=== PATIENT | female | born 1985 | race African-American/Black ===

== ENCOUNTER 2016-05-25 17:45 | Emergency (ER) | payer MEDICAID ==
[2016-05-25 18:00] VITALS: BP 120/82
--- NOTE | 2016-05-25 19:22 | ER Document Report ---
HPI - HPI Patient complains to provider of: SORE THROAT, BODY ACHES, COUGH AND HEADACHE Onset: Other - TUESDAY Onset/Duration: Gradual Quality of pain: Achy Severity: Moderate Pain Level: 4 Context: PT POSSIBLY EXPOSED TO STREP Associated Symptoms: Nonproductive cough, Fever, Headache, Sore throat Exacerbated by: Coughing Relieved by: Denies Similar symptoms previously: No Recently seen / treated by doctor: No - ROS ROS below otherwise negative: Yes Systems Reviewed and Negative: Yes All other systems reviewed and negative - CONSTITUTIONAL Constitutional: REPORTS: Fever - EENT EENT: REPORTS: Sore Throat, Nasal Drainage-Clear - NEURO Neurology: REPORTS: Headache - CARDIOVASCULAR Cardiovascular: DENIES: Chest pain - RESPIRATORY Respiratory: REPORTS: Coughing. DENIES: Trouble Breathing - GASTROINTESTINAL Gastrointestinal: DENIES: Abdominal Pain - URINARY Urinary: DENIES: Dysuria - MUSCULOSKELETAL Musculoskeletal: DENIES: Extremity pain - DERM Skin Color: Normal Skin Problems: None Past Medical History - General Information source: Patient - Social History Smoking Status: Never Smoker Chew tobacco use (# tins/day): No Frequency of alcohol use: None Drug Abuse: None Lives with: Family Family History: Reviewed & Not Pertinent Patient has suicidal ideation: No Patient has homicidal ideation: No - Medical History Medical History: Negative Renal/ Medical History: Denies: Hx Peritoneal Dialysis Surgical Hx: Negative Vertical Provider Document - CONSTITUTIONAL Agree With Documented VS: Yes Exam Limitations: No Limitations General Appearance: WD/WN, No Apparent Distress - INFECTION CONTROL TRAVEL OUTSIDE OF THE [place] IN LAST 30 DAYS: No - HEENT HEENT: Atraumatic, Normocephalic, Pharyngeal Erythema. negative: Pharyngeal Exudate - NECK Neck: Normal Inspection - RESPIRATORY Respiratory: Breath Sounds Normal, No Respiratory Distress, Other - BARKY COUGH O2 Sat by Pulse Oximetry: 98 - CARDIOVASCULAR Cardiovascular: Regular Rate, Regular Rhythm - GI/ABDOMEN Gastrointestinal: Abdomen Soft - MUSCULOSKELETAL/EXTREMETIES Musculoskeletal/Extremeties: ANGEL DUNCAN - NEURO Level of Consciousness: Awake, Alert, Appropriate - DERM Integumentary: Warm, Dry, No Rash Course - Vital Signs Vital signs: Temp Pulse Resp BP Pulse Ox 99.0 F 83 16 120/82 98 05/25/16 18:00 05/25/16 18:00 05/25/16 18:20 05/25/16 18:00 05/25/16 18:00 Discharge - Discharge Clinical Impression: Cough Pharyngitis Qualifiers: Pharyngitis/tonsillitis etiology: unspecified etiology Qualified Code(s): J02.9 - Acute pharyngitis, unspecified Condition: Good Disposition: HOME, SELF-CARE Instructions: Sore Throat ([facility]) Additional Instructions: push fluids OTC cough/cold meds as needed tylenol or motrin prn follow up with PCP for recheck Tuesday if not better throat culture takes 3 days, you will be notified of results return as needed Prescriptions: Azithromycin [Zithromax 250 mg Tablet] 250 mg PO ASDIR PRN #6 tablet PRN Reason:
== END 2016-05-25 19:40 | disposition home or self-care (01) ==
LOC: ER 17:45
DX: J02.9 Acute pharyngitis, unspecified (principal); R05 Cough; R52 Pain, unspecified; R51 Headache; R50.9 Fever, unspecified
CPT/HCPCS: 87070; 87880; 99283

== ENCOUNTER 2016-08-04 08:19 | Emergency (ER) | payer OTHER ==
--- NOTE | 2016-08-04 10:15 | ER Document Report ---
HPI - HPI Patient complains to provider of: laceration Pain Level: 5 Context: 30-year-old female presents emergency department complaining of laceration on her pubic area. Patient states that she was at work throwing out the trash when she accidentally ran her pubic area into the guardrail in front of the dumpster on the point. Patient admits to pain, bleeding at the site. Has been able to ambulate and bear weight without problem. Patient's tetanus is up-to- date. Otherwise denies any other medical problems. - CARDIOVASCULAR Cardiovascular: DENIES: Chest pain - REPRODUCTIVE LMP: 07/06/16 - DERM Skin Color: Normal Past Medical History - Social History Smoking Status: Never Smoker Chew tobacco use (# tins/day): No Frequency of alcohol use: None Drug Abuse: None Family History: Reviewed & Not Pertinent Patient has suicidal ideation: No Patient has homicidal ideation: No Renal/ Medical History: Denies: Hx Peritoneal Dialysis Surgical Hx: Negative Vertical Provider Document - CONSTITUTIONAL Agree With Documented VS: Yes Exam Limitations: No Limitations General Appearance: WD/WN, No Apparent Distress - INFECTION CONTROL TRAVEL OUTSIDE OF THE [place] IN LAST 30 DAYS: No - RESPIRATORY O2 Sat by Pulse Oximetry: 98 - CARDIOVASCULAR Pulses: Normal: Femoral, Dorsalis pedis - GI/ABDOMEN Gastrointestinal: Abdomen Soft, Abdominal Guarding, No Organomegaly, Normal Bowel Sounds - MUSCULOSKELETAL/EXTREMETIES Musculoskeletal/Extremeties: MAEW, FROM, Non-Tender, No Edema - NEURO Level of Consciousness: Awake, Alert, Appropriate Motor/Sensory: No Motor Deficit, No Sensory Deficit - DERM Integumentary: Warm, Dry, No Rash, Laceration - 1cm laceration with minimnal bleeding, palpable hemtoma, minimal tenderness Course - Re-evaluation Re-evalutation: 08/04/16 19:21 Patient is a 30-year-old female hemodynamic stable, no acute distress afebrile. Site was cleared of hair with clippers, cleaned with Betadine and alcohol and closed with Dermabond. Discussed signs and symptoms to return to the emergency department. - Vital Signs Vital signs: Temp Pulse Resp BP Pulse Ox 98.5 F 74 14 149/84 H 98 08/04/16 08:26 08/04/16 08:26 08/04/16 08:26 08/04/16 08:08/04/16 08:26 Procedures - Laceration/Wound Repair Abdomen Wound length (cm): 1 Wound's Depth, Shape: Superficial Wound explored: Clean, No foreign body removed Wound Repaired With: Dermabond Discharge - Discharge Clinical Impression: Laceration Condition: Good Disposition: HOME, SELF-CARE Instructions: Non-Sutured Laceration ([facility]) Forms: Elevated Blood Pressure, Return to Work
[2016-08-04 11:03] VITALS: BP 116/74
== END 2016-08-04 11:04 | disposition home or self-care (01) ==
LOC: ER 08:19
PROC: 0HQ7XZZ Repair Abdomen Skin, External Approach (ICD-10-PCS; principal; 2016-08-04)
DX: S31.119A Laceration without foreign body of abdominal wall, unspecified quadrant without penetration into peritoneal cavity, initial encounter (principal); W22.8XXA Striking against or struck by other objects, initial encounter
CPT/HCPCS: 99282

== ENCOUNTER 2016-08-05 20:48 | Emergency (ER) | payer OTHER ==
--- NOTE | 2016-08-05 23:42 | ER Document Report ---
ED General - General Chief Complaint: Pelvic Pain Stated Complaint: PELVIC PAIN Time Seen by Provider: 08/05/16 23:16 Notes: Patient is a 30-year-old female was seen in the emergency department yesterday for a small area of a laceration on her left pelvic region just above the level of the vagina presents today with small amount of bleeding from the area. States this started just prior to arrival and did resolve with direct pressure. No additional trauma to the area. Denies any erythema spreading from the area , no purulent drainage, no increased pain. She has not seen a primary care doctor regarding today's concerns. Denies any active bleeding at this time. TRAVEL OUTSIDE OF THE [place] IN LAST 30 DAYS: No - Related Data Allergies/Adverse Reactions: No Known Allergies Allergy (Verified 08/04/16 08:22) Past Medical History - General Information source: Patient - Social History Smoking Status: Never Smoker Chew tobacco use (# tins/day): No Frequency of alcohol use: None Drug Abuse: None Lives with: Family Family History: Reviewed & Not Pertinent Patient has suicidal ideation: No Patient has homicidal ideation: No Renal/ Medical History: Denies: Hx Peritoneal Dialysis Surgical Hx: Negative - Immunizations Hx Diphtheria, Pertussis, Tetanus Vaccination: Yes Review of Systems - Review of Systems Notes: Constitutional: Negative for fever. Cardiovascular: Negative for chest pain. Respiratory: Negative for shortness of breath. Gastrointestinal: Negative for vomiting Musculoskeletal: Negative for back pain. Skin: Negative for rash. Neurological: Negative for weakness or numbness. 10 point ROS negative except as marked above and in HPI. Physical Exam - Vital signs Vitals: Temp Pulse Resp BP Pulse Ox 98.1 F 67 18 131/70 H 100 08/05/16 21:23 08/05/16 21:23 08/05/16 21:23 08/05/16 21:23 08/05/16 21:23 Interpretation: Normal Notes: PHYSICAL EXAMINATION: GENERAL: Well-appearing, well-nourished and in no acute distress. HEAD: Atraumatic, normocephalic. EYES: sclera anicteric, conjunctiva are normal. ENT: Moist mucous membranes. NECK: Normal range of motion LUNGS: Normal work of breathing HEART: 2+ radial pulses bilaterally EXTREMITIES: no pitting or edema. No cyanosis. NEUROLOGICAL: No focal neurological deficits. Moves all extremities spontaneously and on command. PSYCH: Normal mood, normal affect. SKIN: Warm, Dry, normal turgor, there is a very small laceration in the left groin region approximately 3-4 cm above the level of vagina. No active bleeding. Course - Re-evaluation Re-evalutation: 08/05/16 23:40 Patient presents with small amount of bleeding from a small laceration that was yesterday using Dermabond in the left pelvic region just above the level of the vagina yesterday. Bleeding at time of assessment. Patient had only scant bleeding on the pad that she had placed inside her underwear. No indication for labs or imaging. Care measures discussed with the patient. At this time will discharge with return precautions and follow-up recommendations. Verbal discharge instructions given a the bedside and opportunity for questions given. Medication warnings reviewed. Patient is in agreement with this plan and has verbalized understanding of return precautions and the need for primary care follow-up in the next 24-72 hours. - Vital Signs Vital signs: Temp Pulse Resp BP Pulse Ox 98.1 F 82 18 129/69 H 98 08/05/16 21:23 08/06/16 00:27 08/06/16 00:27 08/06/16 00:27 08/06/16 00:27 Discharge - Discharge Clinical Impression: Laceration Condition: Good Disposition: HOME, SELF-CARE Additional Instructions: If you develop bleeding from the area please apply direct pressure with a single finger for 15 minutes. Return to the emergency department if the bleeding persists coming of spreading redness from the area, pus from the area or any other symptoms that are worrisome to you.
[2016-08-06 00:28] VITALS: BP 129/69
== END 2016-08-06 00:20 | disposition home or self-care (01) ==
LOC: ER 20:48
DX: S31.010A Laceration without foreign body of lower back and pelvis without penetration into retroperitoneum, initial encounter (principal); W22.8XXA Striking against or struck by other objects, initial encounter
CPT/HCPCS: 99281

== ENCOUNTER 2016-08-14 13:37 | Emergency (ER) | payer OTHER ==
--- NOTE | 2016-08-14 15:00 | ER Document Report ---
HPI - HPI Patient complains to provider of: Swollen tender area to mons pubis Onset: Other - Gradually since Tuesday Onset/Duration: Worse Quality of pain: Sharp, Throbbing Pain Level: 5 Associated Symptoms: Other - Tender swollen area to mons pubis left side Exacerbated by: Movement, Walking Relieved by: Denies Similar symptoms previously: Yes Recently seen / treated by doctor: Yes - ROS ROS below otherwise negative: Yes - CONSTITUTIONAL Constitutional: DENIES: Fever, Chills - EENT EENT: DENIES: Sore Throat, Ear Pain, Nasal Drainage-Clear, Nasal Drainage- Purulent, Congestion, Eye problems - NEURO Neurology: DENIES: Headache, Weakness, Vision blurred, Dizzinesss / Vertigo - CARDIOVASCULAR Cardiovascular: DENIES: Chest pain - RESPIRATORY Respiratory: DENIES: Trouble Breathing, Coughing - GASTROINTESTINAL Gastrointestinal: DENIES: Abdominal Pain, Nausea, Patient vomiting, Diarrhea, Constipation, Black / Bloody Stools - URINARY Urinary: DENIES: Dysuria, Urgency, Frequency - REPRODUCTIVE Reproductive: DENIES: :, Postmenopausal, Abnormal bleeding / discharge - MUSCULOSKELETAL Musculoskeletal: DENIES: Extremity pain, Back Pain, Neck Pain, Swelling - DERM Skin Color: Normal Skin Problems: None Past Medical History - General Information source: Patient - Social History Smoking Status: Never Smoker Cigarette use (# per day): No Chew tobacco use (# tins/day): No Smoking Education Provided: No Frequency of alcohol use: None Drug Abuse: None Occupation: Caregiver Lives with: Family Family History: denies: Arthritis, CAD, COPD, CVA, DM, Hyperlipidemia, Hypertension, Malignancy, Thyroid Disfunction Patient has suicidal ideation: No Patient has homicidal ideation: No - Past Medical History Cardiac Medical History: Reports: None Pulmonary Medical History: Reports: None EENT Medical History: Reports: None Neurological Medical History: Reports: None Endocrine Medical History: Reports: None Renal/ Medical History: Reports: None GI Medical History: Reports: None Musculoskeltal Medical History: Reports None Skin Medical History: Reports None Psychiatric Medical History: Reports: None Traumatic Medical History: Reports: None Infectious Medical History: Reports: None Surgical Hx: Negative Past Surgical History: Reports: None - Immunizations Hx Diphtheria, Pertussis, Tetanus Vaccination: Yes Vertical Provider Document - CONSTITUTIONAL Agree With Documented VS: Yes Exam Limitations: No Limitations General Appearance: WD/WN, No Apparent Distress - INFECTION CONTROL TRAVEL OUTSIDE OF THE [place] IN LAST 30 DAYS: No - HEENT HEENT: Atraumatic, Normal ENT Exam, Normocephalic, PERRLA - NECK Neck: Normal Inspection, Supple, Thyroid Normal - RESPIRATORY Respiratory: Breath Sounds Normal, No Respiratory Distress, Chest Non-Tender O2 Sat by Pulse Oximetry: 98 - GI/ABDOMEN Gastrointestinal: Abdomen Soft, Abdomen Non-Tender, No Organomegaly, Normal Bowel Sounds - REPRODUCTIVE Notes: Bowel painful tender not to the left mons pubis. Patient states it is been there since last Tuesday gradually getting and larger. - MUSCULOSKELETAL/EXTREMETIES Musculoskeletal/Extremeties: MAEW, FROM, Non-Tender - NEURO Level of Consciousness: Awake, Alert, Appropriate Motor/Sensory: No Motor Deficit, No Sensory Deficit, No Pronator Drift Course - Vital Signs Vital signs: Temp Pulse Resp BP Pulse Ox 99.5 F 69 12 130/74 H 98 08/14/16 13:47 08/14/16 13:47 08/14/16 13:47 08/14/16 13:47 08/14/16 13:47 Procedures - Incision and Drainage Left Mons pubis Type: Simple Anesthetic type: 1% Lidocaine mL's of anesthetic: 5 Blade size: 11 I&D procedure: Iodoform packing placed, Other Incision Method: Incision made by scalpel Amount/type of drainage: large amount of dark black drainage Discharge - Discharge Clinical Impression: hematoma to mons pubis Condition: Stable Disposition: HOME, SELF-CARE Instructions: Family Physicians / Practices Additional Instructions: Were seen today for a large tender knot in the pubic area. This area was opened and drained and flushed out with saline. The opening was packed with iodoform gauze that will need to be removed in the ER on Tuesday. Please come in the morning and have someone we remove the packing and reassess the injury. POST INCISION AND DRAINAGE: You have had an incision made to allow drainage of an hematoma. The incision must remain open so that pus and debris can drain from the wound. If the abscess cavity is large, packing is placed. This keeps the tissues from collapsing and trapping fluids inside, while the body shrinks the cavity. The packing may need to be replaced every day or two. The physician has instructed you to return to the emergency room on Tuesday to have the area reassessed. Keep a bulky dressing over the area. Replace it if it becomes saturated with blood or pus. Do not disturb the packing (if present). You may shower and cleanse the area with gentle soap and warm water two or three times a day. Local warmth may be soothing, and may promote faster healing. Return if you develop high fever or chills, or if you note spreading redness, increasing swelling, or increasing tenderness. Cephalexin The antibiotic you've been prescribed is a member of the cephalosporin class. This type of antibiotic covers a wide variety of infections, including those of the skin, lungs, and urinary tract. It's useful for staph infections. This antibiotic is slightly similar to the penicillin family. In rare cases , a person who is allergic to penicillin will also be allergic to this medication. If you have had a severe allergic reaction to penicillin, and have not taken this antibiotic since that time, notify your doctor. Antibiotics which cover many germs ("broad spectrum" antibiotics) are more likely to cause diarrhea or "yeast" infections. Women prone to vaginal yeast problems may suffer an attack after taking this antibiotic. In infants, oral thrush (white spots "stuck" on the cheek) or yeast diaper rash may result. See your doctor if these problems occur. Call at once if you develop itching, hives , shortness of breath, or lightheadedness. ORAL NARCOTIC MEDICATION: You have been given a prescription for pain control. This medication is a narcotic. It's best taken with food, as nausea can result if taken on an empty stomach. Don't operate machinery or drive within six hours of taking this medication. Do not combine this medicine with alcohol, or with any medication which can cause sedation (such as cold tablets or sleeping pills) unless you get permission from the physician. Narcotics tend to cause constipation. If possible, drink plenty of fluids and eat a diet high in fiber and fruits. FOLLOW-UP CARE: Most simple abscesses will not require a follow up visit. If you had packing placed in the abscess, remove it as instructed by the physician. If you have been referred to a physician for follow-up care, call the physicians office for an appointment as you were instructed or within the next two days. If you experience worsening or a significant change in your symptoms, return to the Emergency Department at any time for re-evaluation. Prescriptions: Hydrocodone/Acetaminophen [Grundy 5-325 mg Tablet] 1 tab PO Q6HP PRN #10 tablet PRN Reason: Cephalexin Monohydrate [Keflex 500 mg Capsule] 500 mg PO QID #20 capsule Forms: Return to Work
[2016-08-14 17:18] VITALS: BP 129/77
== END 2016-08-14 17:25 | disposition home or self-care (01) ==
LOC: ER 13:37
PROC: 0H97XZZ Drainage of Abdomen Skin, External Approach (ICD-10-PCS; principal; 2016-08-14)
DX: N94.89 Other specified conditions associated with female genital organs and menstrual cycle (principal); R19.09 Other intra-abdominal and pelvic swelling, mass and lump
CPT/HCPCS: 99283; A6266

== ENCOUNTER 2016-08-16 07:29 | Emergency (ER) | payer OTHER ==
[2016-08-16 07:34] VITALS: BP 122/83
--- NOTE | 2016-08-16 09:09 | ER Document Report ---
ED Wound - General Chief Complaint: Wound Recheck Stated Complaint: RECHECK ON WOUND Time Seen by Provider: 08/16/16 08:49 Mode of Arrival: Ambulatory Information source: Patient Notes: Patient is a 30-year-old female who presents to the ER today for a checking of the packing and her genital abscess that was incised, drained and packed on the 24 here in the emergency department. He is still on her antibiotics, denies fevers or chills, states that she feels much better. TRAVEL OUTSIDE OF THE [place] IN LAST 30 DAYS: No - Related Data Allergies/Adverse Reactions: No Known Allergies Allergy (Verified 08/16/16 07:32) Past Medical History - General Information source: Patient - Social History Smoking Status: Unknown if Ever Smoked Frequency of alcohol use: None Drug Abuse: None Family History: denies: Arthritis, CAD, COPD, CVA, DM, Hyperlipidemia, Hypertension, Malignancy, Thyroid Disfunction Patient has suicidal ideation: No Patient has homicidal ideation: No Renal/ Medical History: Denies: Hx Peritoneal Dialysis - Immunizations Hx Diphtheria, Pertussis, Tetanus Vaccination: Yes Review of Systems - Review of Systems Constitutional: No symptoms reported EENT: No symptoms reported Cardiovascular: No symptoms reported Respiratory: No symptoms reported Gastrointestinal: No symptoms reported Genitourinary: No symptoms reported Female Genitourinary: See HPI Musculoskeletal: No symptoms reported Skin: See HPI Hematologic/Lymphatic: No symptoms reported Neurological/Psychological: No symptoms reported Physical Exam - Vital signs Vitals: Temp Pulse Resp BP Pulse Ox 98.3 F 64 20 122/83 98 08/16/16 07:32 08/16/16 07:32 08/16/16 07:32 08/16/16 07:32 08/16/16 07:32 - Notes Notes: PHYSICAL EXAMINATION: GENERAL: Well-appearing and in no acute distress. HEAD: Atraumatic, normocephalic. EYES: Pupils equal round and reactive to light, extraocular movements intact, sclera anicteric, conjunctiva are normal. NECK: Normal range of motion, supple without lymphadenopathy LUNGS: CTAB and equal. No wheezes rales or rhonchi. HEART: Regular rate and rhythm without murmurs EXTREMITIES: Normal range of motion, no pitting edema. No cyanosis. NEUROLOGICAL: Cranial nerves grossly intact. Normal sensory/motor exams. PSYCH: Normal mood, normal affect. SKIN: Warm, Dry, normal turgor, packing in wound to center of pelvic area above labia majora, no erythema surrounding, no bleeding or drainage, nontender Course - Re-evaluation Re-evalutation: 08/16/16 09:14 Packing was removed successfully without having to give any pain medication. Wound looks very well without erythema or tenderness, drainage. - Vital Signs Vital signs: Temp Pulse Resp BP Pulse Ox 98.3 F 64 20 122/83 98 08/16/16 07:32 08/16/16 07:32 08/16/16 07:32 08/16/16 07:32 08/16/16 07:32 Discharge - Discharge Clinical Impression: Abscess packing removal Condition: Stable Disposition: HOME, SELF-CARE Additional Instructions: Finish your antibiotics. Return immediately for any new or worsening symptoms. Follow up with primary care provider, call tomorrow to make followup appointment.
== END 2016-08-16 09:22 | disposition home or self-care (01) ==
LOC: ER 07:29
DX: Z48.01 Encounter for change or removal of surgical wound dressing (principal)
CPT/HCPCS: 99282

== ENCOUNTER 2016-08-18 11:47 | Emergency (ER) | payer OTHER ==
--- NOTE | 2016-08-18 12:33 | ER Document Report ---
ED Suture/Wound Recheck - General Chief Complaint: Vaginal Pain Stated Complaint: PELVIC PAIN Time Seen by Provider: 08/18/16 12:14 Mode of Arrival: Ambulatory Information source: Patient Notes: 30-year-old female presents to ED for recheck of abscess to the mons pubis did not I&D done on 14 August returned on the and had the packing removed. The site looks well has a small knot no redness no tenderness unless she pushes on the site. No drainage. TRAVEL OUTSIDE OF THE [place] IN LAST 30 DAYS: No - HPI Previous ED treatment: I&D of abscess Antibiotics given previously: Prescription Quality of pain: No pain Severity: None Pain Level: Denies Exacerbated by: Other - palpation Relieved by: Denies - Related Data Allergies/Adverse Reactions: No Known Allergies Allergy (Verified 08/16/16 07:32) Past Medical History - General Information source: Patient - Social History Smoking Status: Never Smoker Cigarette use (# per day): No Chew tobacco use (# tins/day): No Smoking Education Provided: No Frequency of alcohol use: None Drug Abuse: None Occupation: home care nurse Lives with: Family Family History: denies: Arthritis, CAD, COPD, CVA, DM, Hyperlipidemia, Hypertension, Malignancy, Thyroid Disfunction Patient has suicidal ideation: No Patient has homicidal ideation: No - Past Medical History Cardiac Medical History: Reports: None Pulmonary Medical History: Reports: None EENT Medical History: Reports: None Neurological Medical History: Reports: None Endocrine Medical History: Reports: None Renal/ Medical History: Reports: None Malignancy Medical History: Reports: None GI Medical History: Reports: None Musculoskeltal Medical History: Reports None Skin Medical History: Reports Hx Cellulitis Psychiatric Medical History: Reports: None Traumatic Medical History: Reports: None Infectious Medical History: Reports: None Surgical Hx: Negative Past Surgical History: Reports: None - Immunizations Hx Diphtheria, Pertussis, Tetanus Vaccination: Yes Review of Systems - Review of Systems Constitutional: No symptoms reported EENT: No symptoms reported Cardiovascular: No symptoms reported Respiratory: No symptoms reported Gastrointestinal: No symptoms reported Genitourinary: No symptoms reported Female Genitourinary: No symptoms reported Musculoskeletal: No symptoms reported Skin: Other - Recheck of abscess. Hematologic/Lymphatic: No symptoms reported Neurological/Psychological: No symptoms reported Physical Exam - Vital signs Vitals: Temp Pulse Resp BP Pulse Ox 98.0 F 66 16 126/74 H 100 08/18/16 11:55 08/18/16 11:55 08/18/16 11:55 08/18/16 11:55 08/18/16 11:55 Interpretation: Hypertensive - General General appearance: Appears well, Alert - HEENT Head: Normocephalic, Atraumatic Eyes: Normal Pupils: PERRL - Respiratory Respiratory status: No respiratory distress Chest status: Nontender Breath sounds: Normal Chest palpation: Normal - Cardiovascular Rhythm: Regular Heart sounds: Normal auscultation Murmur: No - Abdominal Inspection: Normal Distension: No distension Bowel sounds: Normal Tenderness: Nontender Organomegaly: No organomegaly - Back Back: Normal, Nontender - Extremities General upper extremity: Normal inspection, Nontender, Normal color, Normal ROM , Normal temperature General lower extremity: Normal inspection, Nontender, Normal color, Normal ROM , Normal temperature, Normal weight bearing. No: Pasha's sign - Neurological Neuro grossly intact: Yes Cognition: Normal Orientation: AAOx4 Renetta Coma Scale Eye Opening: Spontaneous Renetta Coma Scale Verbal: Oriented Renetta Coma Scale Motor: Obeys Commands Renetta Coma Scale Total: 15 Speech: Normal Motor strength normal: LUE, RUE, LLE, RLE Sensory: Normal - Psychological Associated symptoms: Normal affect, Normal mood - Skin Skin Temperature: Warm Skin Moisture: Dry Skin Color: Normal Skin irregularity: Abscess - Check abscess to mons pubis site looks well, no swelling, no redness, small knot where the abscess was I&D'd Irregularity with: Tenderness - when palpated Course - Vital Signs Vital signs: Temp Pulse Resp BP Pulse Ox 98.0 F 66 16 126/74 H 100 08/18/16 11:55 08/18/16 11:55 08/18/16 11:55 08/18/16 11:55 08/18/16 11:55 Discharge - Discharge Clinical Impression: Abscess re-check Condition: Stable Disposition: HOME, SELF-CARE Instructions: Family Physicians / Practices Additional Instructions: ABSCESS: You have an abscess (boil). This a pus-forming infection, usually due to staph. Some boils may be left to drain on their own, but most require lancing. From the time the tender lump first appears, it may be three or four days before the abscess is ready to flaco. Local heat and rest help at this stage of treatment. An antibiotic may prevent spread of the infection. Once the abscess is opened, packing may be placed into it. This is done so pus is not sealed inside by premature closure of the cavity. The packing will be removed at your follow-up visit or you may be advised to remove it yourself at home. Sometimes this packing must be replaced a few times during healing. The wound will heal with surprisingly little scar. Depending on the size and location of an abscess, healing can take one to four weeks. You may shower and wash the area around the incision site two or three times a day. Antibiotics may be prescribed, but are usually not necessary after an abscess has been drained. Your abscess is healing sometimes there is a little knot there for a while after the abscess has healed due to scar tissue. You can soak in a tub with Epsom salt to relieve any tenderness to the area. If the area becomes inflamed or red I have written a prescription for Septra that you can use. If abscess continues to heal as is now you do not need to take the Septra. TRIMETHOPRIM-SULFA: You have been given a prescription for trimethoprim-sulfa (TMS, Septra, Bactrim). This is a combination antibiotic of the sulfa class, often used for urinary tract infections, middle ear infections, bronchitis, shigella intestinal infection, and Pneumocystis pneumonia. TMS is usually well-tolerated. Occasional side effects include nausea and decreased appetite. Septra is not recommended for infants less than two months of age. Do not take this medication if you have experienced severe side effects or allergy to sulfa medicine. You should stop this medicine at once and contact your physician if you develop any rash, joint pain, shortness of breath, bruising, or jaundice ( yellow color in the skin), or if you develop any other new or unusual symptoms. Epsom Salt Soaks Soak the wound area in a container of warm epsom salt water. If you can't get the wound area into a bucket or rodriguez, use a folded towel soaked in the epsom salt solution and apply to the area. Use clean hot tap water (about the temperature of a very warm bath), mixing in about one (1) teaspoon for every pint of water. Two gallon --> 16 teaspoons Epsom Salts One gallon --> 8 teaspoons Epsom Salts Two quarts --> 4 teaspoons Epsom Salts One quart --> 2 teaspoons Epsom Salts Soak the wound for about 20 minutes while gently moving it around in the water. Repeat this four (4) times a day. FOLLOW-UP CARE: Most simple abscesses will not require a follow up visit. If you had packing placed in the abscess, remove it as instructed by the physician. If you have been referred to a physician for follow-up care, call the physicians office for an appointment as you were instructed or within the next two days. If you experience worsening or a significant change in your symptoms, return to the Emergency Department at any time for re-evaluation. Prescriptions: Sulfamethoxazole/Trimethoprim [Septra-Ds 800-160 mg Tablet] 1 tab PO BID #14 tablet Forms: Elevated Blood Pressure, Return to Work
[2016-08-18 12:43] VITALS: BP 113/83
== END 2016-08-18 12:45 | disposition home or self-care (01) ==
LOC: ER 11:47
DX: L02.215 Cutaneous abscess of perineum (principal); R10.2 Pelvic and perineal pain
CPT/HCPCS: 99283

== ENCOUNTER 2017-11-15 17:24 | Emergency (ER) | payer BC, OTHER ==
[2017-11-15 18:57] LABS: APPEARANCE,URINE SLIGHTLY-CLOUDY; BILIRUBIN,URINE NEGATIVE (NEGATIVE); COLOR,URINE YELLOW; GLUCOSE, URINE NEGATIVE (NEGATIVE); KETONES,URINE NEGATIVE (NEGATIVE); LEUKOCYTE ESTERASE,URINE MODERATE (NEGATIVE); NITRITE,URINE NEGATIVE (NEGATIVE); PROTEIN,URINE NEGATIVE (NEGATIVE); URINE SPECIFIC GRAVITY 1.009; UROBILINOGEN,URINE NEGATIVE mg/dL (<2.0)
--- NOTE | 2017-11-15 19:50 | ER Document Report ---
ED Medical Screen (RME) - General Chief Complaint: Vag Bleeding, +preg <12wks Stated Complaint: VAGINAL BLEEDING/CRAMPING Time Seen by Provider: 11/15/17 19:35 Notes: 31-year-old female with 11-week . Began having spotting. Some mild cramping. Has not had a formal ultrasound done at the hospital but did have one [facility] and was determined to have an intrauterine . Patient is a known Rh+ O+ patient. Denies any other major symptoms at this time I have greeted and performed a rapid initial assessment of this patient. A comprehensive ED assessment and evaluation of the patient, analysis of test results and completion of the medical decision making process will be conducted by additional ED providers. TRAVEL OUTSIDE OF THE [place] IN LAST 30 DAYS: No - Related Data Allergies/Adverse Reactions: No Known Allergies Allergy (Verified 11/15/17 17:25) Past Medical History - Social History Chew tobacco use (# tins/day): No Frequency of alcohol use: None Drug Abuse: None Renal/ Medical History: Denies: Hx Peritoneal Dialysis Skin Medical History: Reports Hx Cellulitis - Immunizations Hx Diphtheria, Pertussis, Tetanus Vaccination: Yes Physical Exam - Vital signs Vitals: Temp Pulse Resp BP Pulse Ox 97.9 F 62 16 126/82 H 99 11/15/17 17:50 11/15/17 17:50 11/15/17 17:50 11/15/17 17:50 11/15/17 17:50 Course - Vital Signs Vital signs: Temp Pulse Resp BP Pulse Ox 97.9 F 62 16 126/82 H 99 11/15/17 17:50 11/15/17 17:50 11/15/17 17:50 11/15/17 17:50 11/15/17 17:50 - Laboratory Laboratory results interpreted by me: 11/15/17 18:43 Urine Blood LARGE H Ur Leukocyte Esterase MODERATE H
--- NOTE | 2017-11-15 21:11 | ER Document Report ---
ED General - General TRAVEL OUTSIDE OF THE [place] IN LAST 30 DAYS: No <GEO SEGURA - Last Filed: 11/15/17 22:11> <TONIE DONAHUE - Last Filed: 11/16/17 00:05> - General Chief Complaint: Vag Bleeding, +preg <12wks Stated Complaint: VAGINAL BLEEDING/CRAMPING Time Seen by Provider: 11/15/17 19:35 Notes: Patient is a 31-year-old female presenting to the emergency department complaining of vaginal bleeding onset this morning around 0000. Patient states that she is approximately 11 weeks and had an ultrasound at [facility] at 8 weeks . Patient states that her vaginal bleeding began as dark brown in appearance then progressed to a light pink and darker red today with a small amount of clots. She also reports having a small amount of abdominal cramping today. Patient reports being O+, Rh+. Patient is currently taking prenatals. (GEO SEGURA) - Related Data Allergies/Adverse Reactions: No Known Allergies Allergy (Verified 11/15/17 17:25) Past Medical History - General Information source: Patient - Social History Smoking Status: Never Smoker Chew tobacco use (# tins/day): No Frequency of alcohol use: None Drug Abuse: None Family History: Reviewed & Not Pertinent Patient has suicidal ideation: No Patient has homicidal ideation: No Skin Medical History: Reports Hx Cellulitis - Immunizations Hx Diphtheria, Pertussis, Tetanus Vaccination: Yes <GEO SEGURA - Last Filed: 11/15/17 22:11> Review of Systems - Review of Systems Constitutional: No symptoms reported EENT: No symptoms reported Cardiovascular: No symptoms reported Respiratory: No symptoms reported Gastrointestinal: See HPI, Abdominal pain Genitourinary: No symptoms reported Female Genitourinary: See HPI, , Vaginal bleeding Musculoskeletal: No symptoms reported Skin: No symptoms reported Hematologic/Lymphatic: No symptoms reported Neurological/Psychological: No symptoms reported -: Yes All other systems reviewed and negative <GEO SEGURA - Last Filed: 11/15/17 22:11> Physical Exam <GEO SEGURA - Last Filed: 11/15/17 22:11> <TONIE DONAHUE - Last Filed: 11/16/17 00:05> - Vital signs Vitals: Temp Pulse Resp BP Pulse Ox 97.9 F 62 16 126/82 H 99 11/15/17 17:50 11/15/17 17:50 11/15/17 17:50 11/15/17 17:50 11/15/17 17:50 - Notes Notes: GENERAL: Alert, interacts well. No acute distress. HEAD: Normocephalic, atraumatic. EYES: Pupils equal, round, and reactive to light. Extraocular movements intact. ENT: Oral mucosa moist, tongue midline. NECK: Full range of motion. Supple. Trachea midline. LUNGS: Clear to auscultation bilaterally, no wheezes, rales, or rhonchi. No respiratory distress. HEART: Regular rate and rhythm. No murmurs, gallops, or rubs. ABDOMEN: Soft, non-tender. Non-distended. Bowel sounds present in all 4 quadrants. EXTREMITIES: Moves all 4 extremities spontaneously. NEUROLOGICAL: Alert and oriented x3. Normal speech. PSYCH: Normal affect, normal mood. SKIN: Warm, dry, normal turgor. No rashes or lesions noted. (GEO SEGURA) Course - Diagnostic Test Radiology reviewed: Image reviewed - Ultrasound shows an 8-week 6-day IUP with no heartbeat <TONIE DONAHUE - Last Filed: 11/16/17 00:05> - Vital Signs Vital signs: Temp Pulse Resp BP Pulse Ox 97.9 F 62 16 126/82 H 99 11/15/17 17:50 11/15/17 17:50 11/15/17 17:50 11/15/17 17:50 11/15/17 17:50 - Laboratory Laboratory results interpreted by me: 11/15/17 11/15/17 11/15/17 18:43 18:43 19:55 Beta HCG, Quant 4726.90 H Urine Blood LARGE H Ur Leukocyte Esterase MODERATE H Urine HCG, Qual POSITIVE H Discharge <GEO SEGURA - Last Filed: 11/15/17 22:11> <TONIE DONAHUE - Last Filed: 11/16/17 00:05> - Discharge Clinical Impression: demise Condition: Stable Disposition: HOME, SELF-CARE Additional Instructions: Miscarriage Impending You have been evaluated for a possible miscarriage. At this time, it appears that the fetus has stopped growing. A miscarriage occurs when the fetus is abnormal. There is no medicine or treatment to prevent it. If bleeding is not severe, and if your pain can be controlled with medicine, you could complete the miscarriage at home. If that's not practical, or if the miscarriage doesn't progress spontaneously, we will arrange for a D&C procedure. You should rest in bed. Do not douche or have sex for at least a week, or until OK'd by the doctor. If you believe you've passed the fetus, collect it in a zip-lock plastic bag. Be sure to follow up with your doctor. Call the doctor or return for re- examination if there is an increase in bleeding or cramping, extreme weakness, fainting, fever, or passage of tissue. Take Tylenol and ibuprofen for pain and cramps as needed. Drink plenty of fluids and get plenty of rest. Call [facility] tomorrow to see when they want to see you next. RETURN TO THE EMERGENCY ROOM IF ANY NEW OR WORSENING SYMPTOMS. Forms: Return to Work Referrals: [facility] [Provider Group] - 11/16/17 (Call on Tuesday to see when they want you to be seen next.) Scribe Attestation: 11/15/17 21:32 I personally performed the services described in the documentation, reviewed and edited the documentation which was dictated to the scribe in my presence, and it accurately records my words and actions. (TONIE DONAHUE) Scribe Documentation - Scribe Written by Lettyibjuliocesar:: Librado Mckenna, 11/15/2017 21:11 acting as scribe for :: Toby <GEO SEGURA - Last Filed: 11/15/17 22:11>
--- NOTE | 2017-11-15 23:55 | RADIOLOGY REPORT (SQ) ---
EXAM DESCRIPTION: US TRANSVAGINAL COMPLETED DATE/TME: 11/15/2017 00:00 CLINICAL HISTORY: 31 years, Female, bleeding COMPARISON: None. TECHNIQUE: Transvaginal LIMITATIONS: None. FINDINGS: No cardiac activity. Intrauterine gestation includes a fetus with crown-rump length of 2.25 cm corresponding with a gestational age of eight weeks and six days. 9 cm uterus, 2.6 cm cervical length, ovaries not visualized. No free fluid. IMPRESSION: demise pattern. Serial laboratory/sonographic confirmation recommended.
[2017-11-16 00:27] VITALS: BP 118/72
== END 2017-11-16 00:28 | disposition home or self-care (01) ==
LOC: ER 17:24
DX: O02.1 Missed abortion (principal); R10.9 Unspecified abdominal pain
CPT/HCPCS: 36415; 76817; 81001; 81025; 84702; 87086; 99284